=== PATIENT | female | born 1950 | race Caucasian/White ===

== ENCOUNTER 2016-10-27 09:08 | Emergency (ER) | payer MEDICARE, OTHER ==
[~2016-10-27] VITALS: Ht 162.6 cm; Wt 59.0 kg
--- NOTE | 2016-10-27 11:45 | RAD ---
CT of the head without contrast, 10/27/2016: History: Head trauma, pain The ventricles are within normal limits in size. There is no shift of the midline structures. There is no evidence of acute intracranial hemorrhage or mass effect. IMPRESSION: No acute intracranial abnormality is detected. CT of the facial bones without contrast, 10/27/2016: Noncontrast scans were performed with multiplanar reconstructions produced. There is a nondisplaced fracture of the nasal bones. The age of this fracture is unclear. There is also a nondisplaced fracture of the left zygomatic arch which may be old. No other facial bone abnormality is seen. No free fluid is evident in the paranasal sinuses. The orbital contents are unremarkable. There is flattening and spurring of the left mandibular condyle on an arthritic basis. IMPRESSION: 1. Nondisplaced nasal bone and left zygomatic arch fractures of indeterminate ages. Clinical correlation with the site of the patient's current pain is suggested. 2. 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 PQRS Compliance Statement: One or more of the following individualized dose reduction techniques were utilized for this examination: 1. Automated exposure control 2. Adjustment of the mA and/or kV according to patient size 3. Use of iterative reconstruction technique
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
[2016-10-27 12:25] VITALS: BP 118/71
== END 2016-10-27 12:31 | disposition home or self-care (01) ==
LOC: ER 09:08
DX: S02.2XXA Fracture of nasal bones, initial encounter for closed fracture (principal); S02.40FA Zygomatic fracture, left side, initial encounter for closed fracture; S09.90XA Unspecified injury of head, initial encounter; F12.10 Cannabis abuse, uncomplicated; Y08.89XA Assault by other specified means, initial encounter; Z91.013 Allergy to seafood; Z98.51 Tubal ligation status; Y93.89 Activity, other specified; Y92.89 Other specified places as the place of occurrence of the external cause; Y99.8 Other external cause status
CPT/HCPCS: 70450; 70486; 99284-25